=== PATIENT | female | born 1990 | race Caucasian/White ===

== ENCOUNTER 2017-05-25 11:51 | Emergency (ER) | payer BC ==
--- NOTE | 2017-05-25 12:18 | EDM.PDOC ---
ED HPI GENERAL MEDICAL PROBLEM - General Chief Complaint: Gastrointestinal Problem Stated Complaint: 23 WKS NO BL MOVEMENT Time Seen by Provider: 05/25/17 12:17 Source of Information: Reports: Patient History Limitations: Reports: No Limitations - History of Present Illness INITIAL COMMENTS - FREE TEXT/NARRATIVE: HISTORY AND PHYSICAL: History of present illness: [Patient comes to the emergency room complaining of rectal pain and constipation. She had her wisdom teeth removed last week and has been taking hydrocodone approximately 1 per day for several days due to pain. She took one on Thursday and one on Thursday, none yesterday. Believes she had a normal bowel movement yesterday but hasn't had any today. She feels a solid mass of stool protruding from her rectum but she is unable to pass it. She has loose stool leaking around soiling her clothing. No fever or chills. No abdominal pain chest pain shortness of breath or difficulty breathing. She has no other complaints or concerns. She is 26 weeks with her third child, and has felt the baby moving normally.] Review of systems: As per history of present illness and below otherwise all systems reviewed and negative. Past medical history: As per history of present illness and as reviewed below otherwise noncontributory. Surgical history: As per history of present illness and as reviewed below otherwise noncontributory. Social history: No reported history of drug or alcohol abuse. Family history: As per history of present illness and as reviewed below otherwise noncontributory. Physical exam: HEENT: Atraumatic, normocephalic. Lungs: Clear to auscultation, breath sounds equal bilaterally. Heart: S1S2, regular rate and rhythm. Abdomen: Gravid, appropriate for 26 weeks. Pelvis: Stable nontender. Genitourinary: Deferred. Rectal: Perineal tissue is swollen and inflamed. Patient had results with digital stool removal performed by RN and herself while in the ER. Extremities: Atraumatic, ambulatory without difficulty. Neurovascular unremarkable. Neuro: Awake, alert, oriented. Motor and sensory unremarkable throughout. Exam nonfocal. Impression: [Constipation] Plan: [Recommend enema today, stool softener as needed, ice packs to perineal area. Follow-up with OB. Strict return precautions are reviewed. Patient is in agreement with today's plan. All questions are answered and concerns are addressed.] Definitive disposition and diagnosis as appropriate pending reevaluation and review of above. 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 ED EXAM, GI/ABD - Physical Exam Exam: See Below Course - Vital Signs Last Recorded V/S: Last Vital Signs Temp 97.0 F 05/25/17 12:20 Pulse 124 H 05/25/17 12:20 Resp 20 05/25/17 12:20 BP 99/74 05/25/17 12:20 Pulse Ox 100 05/25/17 12:20 Departure - Departure Time of Disposition: 13:30 Disposition: Home, Self-Care 01 Condition: Good Clinical Impression: Constipation - Discharge Information Referrals: Salbador Vail MD [Primary Care Provider] - Forms: ED Department Discharge Additional Instructions: The following information is given to patients seen in the emergency department who are being discharged to home. This information is to outline your options for follow-up care. We provide all patients seen in our emergency department with a follow-up referral. The need for follow-up, as well as the timing and circumstances, are variable depending upon the specifics of your emergency department visit. If you don't have a primary care physician on staff, we will provide you with a referral. We always advise you to contact your personal physician following an emergency department visit to inform them of the circumstance of the visit and for follow-up with them and/or the need for any referrals to a consulting specialist. The emergency department will also refer you to a specialist when appropriate. This referral assures that you have the opportunity for follow-up care with a specialist. All of these measure are taken in an effort to provide you with optimal care, which includes your follow-up. Under all circumstances we always encourage you to contact your private physician who remains a resource for coordinating your care. When calling for follow-up care, please make the office aware that this follow-up is from your recent emergency room visit. If for any reason you are refused follow-up, please contact the [facility] emergency department at and asked to speak to the emergency department charge nurse. [facility] Primary care - Women's [facility] [address] [place] [id number] Follow-up with Dr. Vail or at the clinic listed above within the next 48-72 hours. Ice to perineum. Enema today. You may need a stool softener to prevent constipation while you're . Tylenol or ibuprofen as needed for dental pain. Return to ER as needed as discussed.
[2017-05-25 12:23] VITALS: BP 99/74
== END 2017-05-25 13:40 | disposition home or self-care (01) ==
LOC: MW.ED 11:51
DX: O99.612 Diseases of the digestive system complicating pregnancy, second trimester (principal); K62.89 Other specified diseases of anus and rectum; Z3A.26 26 weeks gestation of pregnancy
CPT/HCPCS: 99282; 99283

== ENCOUNTER 2017-09-09 23:07 | Inpatient (IN) | payer BC ==
[2017-09-09] MEDS ORDERED: Carboprost Tromethamine 250 MCG/1 ML Amp IM PRN (23:34)
[2017-09-09] MEDS ORDERED: Tranexamic Acid 1,000 MG in Sodium Chloride 0.9% 100 ML IV PRN (23:34)
[2017-09-09] MEDS ORDERED: Sodium Chloride 0.9% 2.5 ML Syringe FLUSH PRN (23:34)
[2017-09-09] MEDS ORDERED: Lidocaine 1% 50 ML MDV INJECT PRN (23:34)
[2017-09-09] MEDS ORDERED: Methylergonovine 0.2 MG/1 ML Amp IM PRN (23:34)
[2017-09-09] MEDS ORDERED: Water For Irrigation,Sterile 1,000 ML Container IRR PRN (23:34)
[2017-09-09] MEDS ORDERED: Misoprostol 200 MCG Tab PO PRN (23:34)
[2017-09-09] MEDS ORDERED: Nalbuphine 10 MG/1 ML Vial IVPUSH PRN (23:34)
[2017-09-09] MEDS ORDERED: Sodium Chloride 0.9% 10 ML Syringe FLUSH PRN (23:34)
[2017-09-09] MEDS ORDERED: Butorphanol 1 MG/ML SDV IVPUSH PRN (23:34)
[2017-09-09] MEDS ORDERED: Oxytocin/0.9 % Sodium Chloride 30 UNIT/500 ML BAG IV SCH (23:45)
[2017-09-09] MEDS ORDERED: Lactated Ringers 1,000 ML IV SCH (23:45)
[2017-09-09] MEDS ORDERED: Nalbuphine 10 MG/ML 10 ML MDV IVPUSH PRN (23:46)
--- NOTE | 2017-09-10 00:02 | PCM.LDHP ---
L&D History of Present Illness - General Date of Service: 09/09/17 Admit Problem/Dx: Patient Status Order with Admit Dx/Problem 09/09/17 23:34 Patient Status [ADT] Routine Admission Diagnosis/Problem Admission Diagnosis/Problem 09/09/17 23:57 27yo EDC 09/20/2017 38 3/7wks A+, RI, GBS neg. Active labor Source of Information: Patient History Limitations: Reports: No Limitations - History of Present Illness Improves with: Reports: None Worsens with: Reports: None Associated Symptoms: Reports: N - Related Data Allergies/Adverse Reactions: Allergies Allergy/AdvReac Type Severity Reaction Status Date / Time No Known Allergies Allergy Verified 09/01/17 16:54 Home Medications: Home Meds Ondansetron [Zofran ODT] 4 mg PO Q6H PRN 08/28/15 [History] PNV95/Ferrous Fumarate/FA [ Tablet] 1 tab PO DAILY 09/01/17 [History] hydrOXYzine HCl [hydrOXYzine] 1 tab PO PRN 09/01/17 [History] Past Medical History HEENT History: Reports: None Cardiovascular History: Reports: None Respiratory History: Reports: None Gastrointestinal History: Reports: None Genitourinary History: Reports: None 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: Psychiatric History: Reports: None Hematologic History: Reports: Anemia - Infectious Disease History Infectious Disease History: Reports: Chicken Pox - Past Surgical History HEENT Surgical History: Reports: None Social & Family History - Family History Family Medical History: Noncontributory - Caffeine Use Caffeine Use: Reports: Soda H&P Review of Systems - Review of Systems: Review Of Systems: See Below General: Reports: No Symptoms HEENT: Reports: No Symptoms Pulmonary: Reports: No Symptoms Cardiovascular: Reports: No Symptoms Gastrointestinal: Reports: No Symptoms Genitourinary: Reports: No Symptoms Musculoskeletal: Reports: No Symptoms Skin: Reports: No Symptoms Psychiatric: Reports: No Symptoms Neurological: Reports: No Symptoms Hematologic/Lymphatic: Reports: No Symptoms Immunologic: Reports: No Symptoms L&D Exam - Exam Exam: See Below - Vital Signs Weight: 73.028 kg - OB Specific Contraction Intensity: Moderate to Strong Movement: Active Heart Tones: Present Heart Tones per Min: 150 Heart Rate (FHR) Variability: Moderate (6-25 bmp) Presentation: Vertex - Branch Score Branch Score Cervix Position: Anterior Branch Score Consistency: Soft Branch Score Effacement: >80% Branch Score Dilation: > 5 cm Branch Score Infant's Station: -1 ,0 Branch Score Total: 12 - Exam General: Alert, Oriented, Cooperative HEENT: Hearing Intact Lungs: Clear to Auscultation, Normal Respiratory Effort Cardiovascular: Regular Rate, Regular Rhythm, Normal S1, Normal S2 GI/Abdominal Exam: Normal Bowel Sounds, Soft, Non-Tender, No Organomegaly, No Distention, No Abnormal Bruit, No Mass, Pelvis Stable Rectal Exam: Deferred Genitourinary: Normal external exam, Normal bimanual exam, Cervical dilitation Back Exam: Normal Inspection, Full Range of Motion Extremities: Normal Inspection, Normal Range of Motion, Non-Tender, No Pedal Edema, Normal Capillary Refill Skin: Warm, Dry, Intact Neurological: Cranial Nerves Intact, Reflexes Equal Bilateral, Normal Speech, Normal Tone Psychiatric: Alert, Normal Affect, Normal Mood - Problem List (1) Supervision of normal IUP (intrauterine ) in multigravida SNOMED Code(s): 626171335, 976320070, 749343044 ICD Code: Z34.80 - ENCOUNTER FOR SUPRVSN OF NORMAL , UNSP TRIMESTER Status: Acute Priority: High Current Visit: Yes Qualifiers: Trimester: third trimester Qualified Code(s): Z34.83 - Encounter for supervision of other normal , third trimester Problem List Initiated/Reviewed/Updated: Yes Orders Last 24hrs: Active Orders 24 hr Category Date Time Status Patient Status [ADT] Routine ADT 09/09/17 23:34 Active Heart Tones [RC] CONTINUOUS Care 09/09/17 23:34 Active Non Stress Test [RC] PER UNIT ROUTINE Care 09/09/17 23:34 Active May Shower [RC] ASDIRECTED Care 09/09/17 23:34 Active Notify Provider [RC] PRN Care 09/09/17 23:34 Active Up ad Sita [RC] ASDIRECTED Care 09/09/17 23:34 Active Vaginal Exam [RC] PRN Care 09/09/17 23:34 Active Vital Signs [RC] PER UNIT ROUTINE Care 09/09/17 23:34 Active CBC W/O DIFF,HEMOGRAM [HEME] Routine Lab 09/09/17 23:34 Ordered TYPE AND SCREEN [BBK] Routine Lab 09/09/17 23:34 Ordered Butorphanol [Stadol] Med 09/09/17 23:34 Active 1 mg IVPUSH Q1H PRN Carboprost Tromethamine [Hemabate DS] Med 09/09/17 23:34 Active 250 mcg IM ASDIRECTED PRN Lactated Ringers [Ringers, Lactated] 1,000 ml Med 09/09/17 23:45 Active IV ASDIRECTED Lidocaine 1% [Xylocaine 1%] Med 09/09/17 23:34 Active 50 ml INJECT .ONCE PRN Methylergonovine [Methergine] Med 09/09/17 23:34 Active 0.2 mg IM ASDIRECTED PRN Nalbuphine [Nubain] Med 09/09/17 23:46 Active 10 mg IVPUSH Q1H PRN Oxytocin/0.9 % Sodium Chloride [Oxytocin 30 Unit/500 ML Med 09/09/17 23:45 Active -NS] 30 unit in 500 ml IV TITRATE Sodium Chloride 0.9% [Saline Flush] Med 09/09/17 23:34 Active 10 ml FLUSH ASDIRECTED PRN Sodium Chloride 0.9% [Saline Flush] Med 09/09/17 23:34 Active 2.5 ml FLUSH ASDIRECTED PRN Tranexamic Acid [Cyklokapron] 1,000 mg Med 09/09/17 23:34 Active Sodium Chloride 0.9% [Normal Saline] 100 ml IV ONETIME Water For Irrigation,Sterile [Sterile Water for Med 09/09/17 23:34 Active Irrigation] 1,000 ml IRR ASDIRECTED PRN miSOPROStol [Cytotec] Med 09/09/17 23:34 Active 200 mcg PO .ONCE PRN Scalp Electrode [WOMSER] Per Unit Routine Oth 09/09/17 23:34 Ordered Peripheral IV Insertion Adult [OM.PC] Routine Oth 09/09/17 23:34 Ordered Resuscitation Status Routine Resus Stat 09/09/17 23:34 Ordered Medication Orders Butorphanol Tartrate (Stadol) 1 mg IVPUSH Q1H PRN PRN Reason: Pain Carboprost Tromethamine (Hemabate Ds) 250 mcg IM ASDIRECTED PRN PRN Reason: Post Hemorrhage Lactated Ringer's (Ringers, Lactated) 1,000 mls @ 150 mls/hr IV ASDIRECTED [facility] Oxytocin/Sodium Chloride (Oxytocin 30 Unit/500 Ml-Ns) 30 unit in 500 mls @ 500 mls/hr IV TITRATE MALDONADO Tranexamic Acid 1,000 mg/ (Sodium Chloride) 110 mls @ 660 mls/hr IV ONETIME PRN PRN Reason: Bleeding Lidocaine HCl (Xylocaine 1%) 50 ml INJECT .ONCE PRN PRN Reason: Laceration repair Methylergonovine Maleate (Methergine) 0.2 mg IM ASDIRECTED PRN PRN Reason: Post Hemorrhage Misoprostol (Cytotec) 200 mcg PO .ONCE PRN PRN Reason: Post Hemorrhage Nalbuphine HCl (Nubain) 10 mg IVPUSH Q1H PRN PRN Reason: Pain (severe 7-10) Sodium Chloride (Saline Flush) 10 ml FLUSH ASDIRECTED PRN PRN Reason: Keep Vein Open Sodium Chloride (Saline Flush) 2.5 ml FLUSH ASDIRECTED PRN PRN Reason: Keep Vein Open Sterile Water (Sterile Water For Irrigation) 1,000 ml IRR ASDIRECTED PRN PRN Reason: delivery Assessment/Plan Comment:: Labor A: 27yo EDC 09/20/2017 38 3/7wks A+, RI, GBS neg. Active labor P: Admit to L&D, epidural now, anticipate . Dr Vail updated
[2017-09-10] MEDS ORDERED: Bupivacaine 0.25% 10 ML SDV ONE (00:35)
--- NOTE | 2017-09-10 01:53 | PCM.DEL ---
L & D Note - General Info Date of Service: 09/10/17 Mother's Due Date: 09/20/17 - Delivery Note Labor: Spontaneous Delivery Outcome: Livebirth Infant Delivery Method: Spontaneous Vaginal Delivery-Single Delivery Mode: Spontaneous Presentation: Vertex Nuchal Cord: None Anesthesia Type: Epidural Amniotic Fluid Description: Clear Episiotomy Type: None Laceration: None Placenta: Intact, Spontaneous Cord: 3 Vessels Estimated Blood Loss: 200 Resuscitation Needed: No Score 1 min: 9 Score 5 min: 10 Second Stage Interventions: Reports: Pushing, Pulls Own Legs Back (for one push and baby delivered) - General Info Date of Service: 09/10/17 Admission Dx/Problem (Free Text): Patient Status Order with Admit Dx/Problem 09/09/17 23:34 Patient Status [ADT] Routine Admission Diagnosis/Problem Admission Diagnosis/Problem 09/09/17 23:57 27yo EDC 09/20/2017 38 3/7wks A+, RI, GBS neg. Active labor Functional Status: Reports: Pain Controlled - Review of Systems General: Reports: No Symptoms HEENT: Reports: No Symptoms Pulmonary: Reports: No Symptoms Cardiovascular: Reports: No Symptoms Gastrointestinal: Reports: No Symptoms Genitourinary: Reports: No Symptoms Musculoskeletal: Reports: No Symptoms Skin: Reports: No Symptoms Neurological: Reports: No Symptoms Psychiatric: Reports: No Symptoms - Patient Data Weight - Most Recent: 73.028 kg Lab Results Last 24 Hours: Laboratory Results - last 24 hr 09/09/17 09/09/17 Range/Units 23:50 23:50 WBC 9.84 (4.0-11.0) K/uL RBC 3.38 L (4.30-5.90) M/uL Hgb 8.4 L (12.0-16.0) g/dL Hct 27.2 L (36.0-46.0) % MCV 80.5 (80.0-98.0) fL MCH 24.9 L (27.0-32.0) pg MCHC 30.9 L (31.0-37.0) g/dL RDW Std Deviation 45.0 (28.0-62.0) fl RDW Coeff of Kyree 15 (11.0-15.0) % Plt Count 205 (150-400) K/uL MPV 10.30 (7.40-12.00) fL Nucleated RBC % 0.0 /100WBC Nucleated RBCs # 0 K/uL Blood Type A POSITIVE Antibody Screen NEGATIVE Med Orders - Current: Current Medications Butorphanol Tartrate (Stadol) 1 mg IVPUSH Q1H PRN PRN Reason: Pain Carboprost Tromethamine (Hemabate Ds) 250 mcg IM ASDIRECTED PRN PRN Reason: Post Hemorrhage Lactated Ringer's (Ringers, Lactated) 1,000 mls @ 150 mls/hr IV ASDIRECTED [facility] Last Admin: 09/10/17 00:00 Dose: 999 mls/hr Oxytocin/Sodium Chloride (Oxytocin 30 Unit/500 Ml-Ns) 30 unit in 500 mls @ 500 mls/hr IV TITRATE [facility] Tranexamic Acid 1,000 mg/ (Sodium Chloride) 110 mls @ 660 mls/hr IV ONETIME PRN PRN Reason: Bleeding Lidocaine HCl (Xylocaine 1%) 50 ml INJECT .ONCE PRN PRN Reason: Laceration repair Methylergonovine Maleate (Methergine) 0.2 mg IM ASDIRECTED PRN PRN Reason: Post Hemorrhage Misoprostol (Cytotec) 200 mcg PO .ONCE PRN PRN Reason: Post Hemorrhage Nalbuphine HCl (Nubain) 10 mg IVPUSH Q1H PRN PRN Reason: Pain (severe 7-10) Sodium Chloride (Saline Flush) 10 ml FLUSH ASDIRECTED PRN PRN Reason: Keep Vein Open Sodium Chloride (Saline Flush) 2.5 ml FLUSH ASDIRECTED PRN PRN Reason: Keep Vein Open Sterile Water (Sterile Water For Irrigation) 1,000 ml IRR ASDIRECTED PRN PRN Reason: delivery Discontinued Medications Bupivacaine HCl (Sensorcaine-Mpf 0.25%) Confirm Administered Dose 10 ml .ROUTE .STK-MED ONE Stop: 09/10/17 00:36 Fentanyl/Bupivacaine HCl (Saikiame-Zvrpy-Yf 2 Mcg/Ml-0.125%) Confirm Administered Dose 100 mls @ as directed EP .STK-MED ONE Stop: 09/10/17 00:37 - Exam General: Alert, Oriented, Cooperative, No Acute Distress Lungs: Normal Respiratory Effort GI/Abdominal Exam: Soft, Non-Tender (Female) Exam: Normal External Exam, Normal Bimanual Exam, Vaginal Bleeding Back Exam: Normal Inspection, Full Range of Motion Extremities: Normal Inspection, Normal Range of Motion, Non-Tender, No Pedal Edema, Normal Capillary Refill Skin: Warm, Dry, Intact Wound/Incisions: Healing Well Neurological: No New Focal Deficit, Normal Speech, Normal Tone Psy/Mental Status: Alert, Normal Affect, Normal Mood - Problem List & Annotations (1) Supervision of normal IUP (intrauterine ) in multigravida SNOMED Code(s): 000802456, 281520625, 381414316 Code(s): Z34.80 - ENCOUNTER FOR SUPRVSN OF NORMAL , UNSP TRIMESTER Status: Acute Priority: High Current Visit: Yes Qualifiers: Trimester: third trimester Qualified Code(s): Z34.83 - Encounter for supervision of other normal , third trimester (2) (normal spontaneous vaginal delivery) SNOMED Code(s): 63195297 Code(s): O80 - ENCOUNTER FOR FULL-TERM UNCOMPLICATED DELIVERY Status: Acute Priority: High Current Visit: Yes - Problem List Review Problem List Initiated/Reviewed/Updated: Yes - My Orders Last 24 Hours: My Active Orders 09/09/17 23:34 Patient Status [ADT] Routine Heart Tones [RC] CONTINUOUS Non Stress Test [RC] PER UNIT ROUTINE May Shower [RC] ASDIRECTED Notify Provider [RC] PRN Up ad Sita [RC] ASDIRECTED Vaginal Exam [RC] PRN Vital Signs [RC] PER UNIT ROUTINE Butorphanol [Stadol] 1 mg IVPUSH Q1H PRN Carboprost Tromethamine [Hemabate DS] 250 mcg IM ASDIRECTED PRN Lidocaine 1% [Xylocaine 1%] 50 ml INJECT .ONCE PRN Methylergonovine [Methergine] 0.2 mg IM ASDIRECTED PRN Sodium Chloride 0.9% [Saline Flush] 10 ml FLUSH ASDIRECTED PRN Sodium Chloride 0.9% [Saline Flush] 2.5 ml FLUSH ASDIRECTED PRN Tranexamic Acid [Cyklokapron] 1,000 mg Sodium Chloride 0.9% [Normal Saline] 100 ml IV ONETIME Water For Irrigation,Sterile [Sterile Water for Irrigation] 1,000 ml IRR ASDIRECTED PRN miSOPROStol [Cytotec] 200 mcg PO .ONCE PRN Scalp Electrode [WOMSER] Per Unit Routine Peripheral IV Insertion Adult [OM.PC] Routine Resuscitation Status Routine 09/09/17 23:45 Lactated Ringers [Ringers, Lactated] 1,000 ml IV ASDIRECTED Oxytocin/0.9 % Sodium Chloride [Oxytocin 30 Unit/500 ML-NS] 30 unit in 500 ml IV TITRATE 09/09/17 23:46 Nalbuphine [Nubain] 10 mg IVPUSH Q1H PRN - Plan Plan:: Labor A: 27yo EDC 09/20/2017 38 3/7wks A+, RI, GBS neg. Active labor P: Admit to L&D, epidural now, anticipate . Dr Vail updated Delivery A: of viable male, APGARS 9/10, Wt: 7lb 2oz, Intact perineum, EBL 200cc. Mother and baby stable and bonding well P: Routine pp plan of care
[2017-09-10] MEDS ORDERED: Bisacodyl 10 MG Supp RECTAL PRN (01:54)
[2017-09-10] MEDS ORDERED: Lanolin 100% Cream 7 GM Tube TOP PRN (01:54)
[2017-09-10] MEDS ORDERED: Acetaminophen 500 MG Tab PO PRN ×2 (01:54)
[2017-09-10] MEDS ORDERED: Benzocaine/Menthol 20%-0.5% Spray 78 GM Cannister TOP PRN (01:54)
[2017-09-10] MEDS ORDERED: oxyCODONE 5 MG Tab PO PRN (01:54)
[2017-09-10] MEDS ORDERED: Witch Hazel Medicated Pads 40/Jar TOP PRN (01:54)
[2017-09-10] MEDS ORDERED: Ibuprofen 400 MG Tab PO PRN (01:54)
[2017-09-10] MEDS ORDERED: Docusate Sodium 100 MG Cap PO PRN (01:54)
--- NOTE | 2017-09-10 07:38 | PCM.POSTAN ---
POST ANESTHESIA ASSESSMENT - MENTAL STATUS Mental Status: Alert, Oriented - RESPIRATORY Respiratory Status: Respiratory Rate WNL, Airway Patent, O2 Saturation Stable - CARDIOVASCULAR CV Status: Pulse Rate WNL, Blood Pressure Stable - GASTROINTESTINAL GI Status: No Symptoms - POST OP HYDRATION Hydration Status: Adequate & Stable
--- NOTE | 2017-09-10 07:38 | PCM48HPAN ---
Post Anesthesia Note - EVALUATION WITHIN 48HRS OF ANESTHETIC Vital Signs in Normal Range: Yes Patient Participated in Evaluation: Yes Respiratory Function Stable: Yes Airway Patent: Yes Cardiovascular Function Stable: Yes Hydration Status Stable: Yes Pain Control Satisfactory: Yes Nausea and Vomiting Control Satisfactory: Yes Mental Status Recovered: Yes Resp Rate: 16
[2017-09-10] MEDS: Ibuprofen 800 MG Tab PO PRN ×2 (08:50→16:35)
[2017-09-11] MEDS: Ibuprofen 800 MG Tab PO PRN (00:30)
[2017-09-11 05:05] VITALS: BP 110/58
--- NOTE | 2017-09-11 12:50 | PCM.DCSUM1 ---
Discharge Summary - Hospital Course Free Text/Narrative:: Discharge home with infant, Follow up in 6 weeks for post visit. Diagnosis: Stroke: No - Discharge Data Discharge Date: 09/11/17 Discharge Disposition: Home, Self-Care 01 Condition: Good - Discharge Diagnosis/Problem(s) (1) Supervision of normal IUP (intrauterine ) in multigravida SNOMED Code(s): 657380719, 812960247, 995623770 ICD Code: Z34.80 - ENCOUNTER FOR SUPRVSN OF NORMAL , UNSP TRIMESTER Status: Acute Priority: High Current Visit: Yes Qualifiers: Trimester: third trimester Qualified Code(s): Z34.83 - Encounter for supervision of other normal , third trimester (2) (normal spontaneous vaginal delivery) SNOMED Code(s): 84782808 ICD Code: O80 - ENCOUNTER FOR FULL-TERM UNCOMPLICATED DELIVERY Status: Acute Priority: High Current Visit: Yes - Patient Instructions Diet: Usual Diet as Tolerated Activity: As Tolerated, No Strenuous Activities, Rest and Relax Today Driving: May Drive Today Showering/Bathing: May Shower Notify Provider of: Fever, Increased Pain, Swelling and Redness, Nausea and/or Vomiting Other/Special Instructions: Discharge home with , Follow up in 6 weeks for post visit. - Discharge Plan Home Medications: Home Meds Ondansetron [Zofran ODT] 4 mg PO Q6H PRN 08/28/15 [History] PNV95/Ferrous Fumarate/FA [ Tablet] 1 tab PO DAILY 09/01/17 [History] hydrOXYzine HCl [hydrOXYzine] 1 tab PO PRN 09/01/17 [History] Patient Handouts: Vaginal Delivery, Care After Referrals: [facility] [Outside] Salbador Vail MD [Physician] - 10/23/17 8:30 am - General Info Date of Service: 09/11/17 Admission Dx/Problem (Free Text: Patient Status Order with Admit Dx/Problem 09/09/17 23:34 Patient Status [ADT] Routine Admission Diagnosis/Problem Admission Diagnosis/Problem 09/09/17 23:57 27yo EDC 09/20/2017 38 3/7wks A+, RI, GBS neg. Active labor Functional Status: Reports: Pain Controlled, Tolerating Diet, Ambulating, Urinating - Review of Systems General: Reports: No Symptoms HEENT: Reports: No Symptoms Pulmonary: Reports: No Symptoms Cardiovascular: Reports: No Symptoms Gastrointestinal: Reports: No Symptoms Genitourinary: Reports: No Symptoms Musculoskeletal: Reports: No Symptoms Skin: Reports: No Symptoms Neurological: Reports: No Symptoms Psychiatric: Reports: No Symptoms - Patient Data Vitals - Most Recent: Last Vital Signs Temp 36.8 C 09/11/17 05:04 Pulse 82 09/11/17 05:04 Resp 16 09/11/17 05:04 BP 110/58 L 09/11/17 05:04 Pulse Ox 98 09/11/17 05:04 Weight - Most Recent: 73.028 kg Med Orders - Current: Current Medications Acetaminophen (Tylenol Extra Strength) 500 mg PO Q4H PRN PRN Reason: Pain Acetaminophen (Tylenol Extra Strength) 1,000 mg PO Q4H PRN PRN Reason: Pain Benzocaine/Menthol (Dermoplast Pain Relief 20%-0.5% [place]) 78 gm TOP ASDIRECTED PRN PRN Reason: Perineal Comfort Measure Bisacodyl (Dulcolax) 10 mg RECTAL .ONCE PRN PRN Reason: Constipation Docusate Sodium (Colace) 100 mg PO BID PRN PRN Reason: Constipation Emollient Ointment (Lansinoh Hpa) 0 gm TOP ASDIRECTED PRN PRN Reason: Sore Nipples Ibuprofen (Motrin) 400 mg PO Q4H PRN PRN Reason: Pain Ibuprofen (Motrin) 800 mg PO Q6H PRN PRN Reason: Pain Last Admin: 09/11/17 00:30 Dose: 800 mg Oxycodone HCl (Oxycodone) 5 mg PO Q2H PRN PRN Reason: Pain Witch Leydi (Tucks) 1 pad TOP ASDIRECTED PRN PRN Reason: comfort care Discontinued Medications Bupivacaine HCl (Sensorcaine-Mpf 0.25%) Confirm Administered Dose 10 ml .ROUTE .STK-MED ONE Stop: 09/10/17 00:36 Last Admin: 09/10/17 08:51 Dose: Not Given Butorphanol Tartrate (Stadol) 1 mg IVPUSH Q1H PRN PRN Reason: Pain Carboprost Tromethamine (Hemabate Ds) 250 mcg IM ASDIRECTED PRN PRN Reason: Post Hemorrhage Lactated Ringer's (Ringers, Lactated) 1,000 mls @ 150 mls/hr IV ASDIRECTED [facility] Last Admin: 09/10/17 00:00 Dose: 999 mls/hr Oxytocin/Sodium Chloride (Oxytocin 30 Unit/500 Ml-Ns) 30 unit in 500 mls @ 500 mls/hr IV TITRATE [facility] Last Admin: 09/10/17 01:34 Dose: 500 mls/hr Tranexamic Acid 1,000 mg/ (Sodium Chloride) 110 mls @ 660 mls/hr IV ONETIME PRN PRN Reason: Bleeding Fentanyl/Bupivacaine HCl (Ucvbfnli-Egmmg-Yf 2 Mcg/Ml-0.125%) Confirm Administered Dose 100 mls @ as directed EP .STK-MED ONE Stop: 09/10/17 00:37 Last Admin: 09/10/17 08:51 Dose: Not Given Lidocaine HCl (Xylocaine 1%) 50 ml INJECT .ONCE PRN PRN Reason: Laceration repair Methylergonovine Maleate (Methergine) 0.2 mg IM ASDIRECTED PRN PRN Reason: Post Hemorrhage Misoprostol (Cytotec) 200 mcg PO .ONCE PRN PRN Reason: Post Hemorrhage Nalbuphine HCl (Nubain) 10 mg IVPUSH Q1H PRN PRN Reason: Pain (severe 7-10) Sodium Chloride (Saline Flush) 10 ml FLUSH ASDIRECTED PRN PRN Reason: Keep Vein Open Sodium Chloride (Saline Flush) 2.5 ml FLUSH ASDIRECTED PRN PRN Reason: Keep Vein Open Sterile Water (Sterile Water For Irrigation) 1,000 ml IRR ASDIRECTED PRN PRN Reason: delivery - Exam General: Reports: Alert, Cooperative, No Acute Distress Lungs: Reports: Clear to Auscultation, Normal Respiratory Effort Cardiovascular: Reports: Regular Rate, Regular Rhythm, No Murmurs GI/Abdominal Exam: Soft (Female) Exam: Vaginal Bleeding Rectal (Female) Exam: Deferred Back Exam: Reports: Normal Inspection, Full Range of Motion Extremities: Normal Inspection, Normal Range of Motion, Non-Tender, No Pedal Edema, Normal Capillary Refill Skin: Reports: Warm, Dry, Intact Wound/Incisions: Reports: Healing Well Neurological: Reports: No New Focal Deficit, Normal Gait, Normal Speech, Normal Tone, Strength Equal Bilateral Psy/Mental Status: Reports: Alert, Normal Affect, Normal Mood
== END 2017-09-11 11:50 | disposition home or self-care (01) | DRG 560 ==
LOC: MW.OB 23:07 → MW.OBCHECK 23:07 → MW.OB 23:34 → OBSVTOIN 09-10 01:30
PROVIDERS: ADMIT Obstetrics & Gynecology; ATTEND Obstetrics & Gynecology
DX: O80 Encounter for full-term uncomplicated delivery (principal); Z3A.38 38 weeks gestation of pregnancy; Z37.0 Single live birth
CPT/HCPCS: 36415; 51701; 59025; 59409; 85027; 86850; 86900; 86901; A9270-GY; J2590; J3490; J7120